=== PATIENT | male | born 1980 | race American Indian/Alaskan Native ===

== ENCOUNTER 2021-06-08 20:30 | Emergency (ER) | payer OTHER ==
[~2021-06-08] VITALS: Ht 175.3 cm; Wt 72.6 kg
[~2021-06-08 20:30] MED LIST: ADVIL200 MG PO; ASPIRIN EC650 MG PO; LEVAQUIN500 MG PO; NAPROXEN500 MG PO; NORCO 5-325 TA1 EACH PO; OMEPRAZOLE20 MG PO; PRILOSEC20 MG PO; PROMETHAZINE HC25 M1 PO; ZOFRAN ODT4 MG SL
[2021-06-08] MEDS ORDERED: TYLENOL325 M1 PO (20:48)
[2021-06-08] MEDS ORDERED: IBU800 MG PO (23:55)
[2021-06-08] MEDS ORDERED: MAPAP500 MG PO (23:55)
[2021-06-08] MEDS ORDERED: AUGMENTIN 875-1 EACH PO (23:55)
== END 2021-06-09 01:04 | disposition home or self-care (01) ==
LOC: ED 20:30
DX: K04.7 Periapical abscess without sinus (principal); F17.200 Nicotine dependence, unspecified, uncomplicated
CPT/HCPCS: 99283; A9270